=== PATIENT | male | born 1985 | race African-American/Black ===

== ENCOUNTER 2018-05-05 06:18 | Emergency (ER) | payer OTHER ==
[2018-05-05] MEDS ORDERED: Ketorolac Tromethamine 60 MG/2 ML VIAL ONE (06:33)
== END 2018-05-05 07:22 | disposition home or self-care (01) ==
LOC: ERS 06:18
DX: M10.9 Gout, unspecified (principal); S00.12XA Contusion of left eyelid and periocular area, initial encounter; H02.402 Unspecified ptosis of left eyelid; H11.32 Conjunctival hemorrhage, left eye; F17.210 Nicotine dependence, cigarettes, uncomplicated; Y29.XXXA Contact with blunt object, undetermined intent, initial encounter; Y92.89 Other specified places as the place of occurrence of the external cause
CPT/HCPCS: 96372; J1885